=== PATIENT | female | born 1960 | race Caucasian/White ===

== ENCOUNTER 2018-05-01 17:00 | Emergency (ER) | payer OTHER, MEDICAID ==
[~2018-05-01] VITALS: Ht 170.2 cm; Wt 98.6 kg
[~2018-05-01 17:00] MED LIST: HYDR-4353 PO; LORA-660 PO; PHEN37.54 PO; TRAZ-218 PO
[2018-05-01 17:08] VITALS: BP 131/64
[2018-05-01] MEDS ORDERED: CEPH250T PO (19:27)
== END 2018-05-01 19:34 | disposition home or self-care (01) ==
LOC: ER 17:00
DX: S61.212A Laceration without foreign body of right middle finger without damage to nail, initial encounter (principal); S61.216A Laceration without foreign body of right little finger without damage to nail, initial encounter; J44.9 Chronic obstructive pulmonary disease, unspecified; G89.29 Other chronic pain; Z90.49 Acquired absence of other specified parts of digestive tract; Z90.710 Acquired absence of both cervix and uterus; Z98.890 Other specified postprocedural states; Z88.8 Allergy status to other drugs, medicaments and biological substances; Z79.2 Long term (current) use of antibiotics; Z79.899 Other long term (current) drug therapy; W26.0XXA Contact with knife, initial encounter; Y93.G9 Activity, other involving cooking and grilling; Y92.89 Other specified places as the place of occurrence of the external cause; Y99.8 Other external cause status
CPT/HCPCS: 12004; 99284

== ENCOUNTER 2018-05-05 16:08 | Emergency (ER) | payer OTHER, MEDICAID ==
[~2018-05-05] VITALS: Ht 170.2 cm; Wt 69.2 kg
[~2018-05-05 16:08] MED LIST changes: +CEPH250T PO
[2018-05-05 17:21] VITALS: BP 145/81
== END 2018-05-05 19:28 | disposition home or self-care (01) ==
LOC: ER 16:11
DX: S61.215D Laceration without foreign body of left ring finger without damage to nail, subsequent encounter (principal); J44.9 Chronic obstructive pulmonary disease, unspecified; G89.29 Other chronic pain; Z90.49 Acquired absence of other specified parts of digestive tract; Z90.710 Acquired absence of both cervix and uterus; Z98.890 Other specified postprocedural states; Z88.6 Allergy status to analgesic agent; Z88.8 Allergy status to other drugs, medicaments and biological substances; Z79.2 Long term (current) use of antibiotics; Z79.899 Other long term (current) drug therapy; Z91.018 Allergy to other foods; W26.0XXD Contact with knife, subsequent encounter
CPT/HCPCS: 99281

== ENCOUNTER 2020-05-24 18:46 | Emergency (ER) | payer OTHER, MEDICAID ==
[~2020-05-24] VITALS: Ht 165.1 cm; Wt 63.6 kg
[~2020-05-24 18:46] MED LIST changes: +ALB0.5UD IH; +ALBU8.5H8 IH; +APIX5TAB3 PO; -CEPH250T PO; +FURO40TA4 PO; -HYDR-4353 PO; +LISI2.5T2 PO; -LORA-660 PO; -PHEN37.54 PO; -TRAZ-218 PO; +TRAZ-251 PO; +metoprolol tartrate tablet PO
[2020-05-24 19:30] LABS: BASOPHILS # (AUTO) 0.1 X10'3 (0-0.2); BASOPHILS % (AUTO) 1.4 % (0-1); EOSINOPHILS # (AUTO) 0.1 X10'3 (0-0.9); EOSINOPHILS % (AUTO) 1.7 % (0-6); HEMATOCRIT 47.3 % (35.0-45.0); HEMOGLOBIN 15.7 g/dl (12.0-16.0); LYMPHOCYTES # (AUTO) 1.5 X10'3 (1.1-4.8); LYMPHOCYTES % (AUTO) 20.5 % (21-51); MEAN CORPUSCULAR HEMOGLOBIN 30.5 PG (27.0-31.0); MEAN CORPUSCULAR HGB CONC 33.2 g/dL (33.0-36.5); MEAN CORPUSCULAR VOLUME 91.9 FL (78-98); MEAN PLATELET VOLUME 7.8 FL (7.4-10.4); MONOCYTES # (AUTO) 0.5 X10'3 (0-0.9); MONOCYTES % (AUTO) 6.1 % (2-12); NEUTROPHILS # (AUTO) 5.3 X10'3 (1.8-7.7); NEUTROPHILS % (AUTO) 70.3 % (42-75); PLATELET COUNT 356 X10'3 (140-440); RED BLOOD COUNT 5.15 X10'6 (4.20-5.60); WHITE BLOOD COUNT 7.5 X10'3 (4.5-11.0)
[2020-05-24 19:51] LABS: ALANINE AMINOTRANSFERASE 28 U/L (12-78); ALBUMIN 3.8 G/DL (3.4-5.0); ALKALINE PHOSPHATASE 65 IU/L (46-116); ANION GAP 8 (8-16); ASPARTATE AMINO TRANSFERASE 22 U/L (10-37); BILIRUBIN,TOTAL 0.5 MG/DL (0.1-1.0); BLOOD UREA NITROGEN 40 MG/DL (7-18); BUN/CREATININE RATIO 37.7 (6.6-38.0); CALCIUM 9.2 MG/DL (8.5-10.1); CHLORIDE 102 MMOL/L (99-107); CREATININE 1.06 MG/DL (0.40-0.90); GLUCOSE 99 MG/DL (70-104); POTASSIUM 3.7 MMOL/L (3.5-5.1); SODIUM 140 MMOL/L (135-145); TOTAL CARBON DIOXIDE 30.2 MMOL/L (24-32); TOTAL PROTEIN 7.5 G/DL (6.4-8.2); eGFR 53 ML/MIN
[2020-05-24] MEDS ORDERED: acetaminophen 325mg tablet PO ONE (20:10)
[2020-05-24 21:28] VITALS: BP 109/73
== END 2020-05-24 21:29 | disposition home or self-care (01) ==
LOC: ER 18:47
DX: R00.2 Palpitations (principal); J44.9 Chronic obstructive pulmonary disease, unspecified; G89.29 Other chronic pain; F41.9 Anxiety disorder, unspecified; R06.89 Other abnormalities of breathing; Z90.49 Acquired absence of other specified parts of digestive tract; Z90.710 Acquired absence of both cervix and uterus; Z98.890 Other specified postprocedural states; Z90.89 Acquired absence of other organs; Z88.8 Allergy status to other drugs, medicaments and biological substances; Z88.6 Allergy status to analgesic agent; Z91.018 Allergy to other foods; Z79.01 Long term (current) use of anticoagulants; Z79.899 Other long term (current) drug therapy
CPT/HCPCS: 36415; 71045; 80053; 83880; 84484; 85025; 93005; 99285

== ENCOUNTER 2020-06-07 12:22 | Observation (INO) | payer OTHER, MEDICAID ==
[~2020-06-07] VITALS: Ht 165.1 cm; Wt 78.2 kg
[2020-06-07 13:01] LABS: BASOPHILS # (AUTO) 0.1 X10'3 (0-0.2); BASOPHILS % (AUTO) 0.9 % (0-1); EOSINOPHILS # (AUTO) 0.3 X10'3 (0-0.9); EOSINOPHILS % (AUTO) 2.6 % (0-6); HEMATOCRIT 46.6 % (35.0-45.0); HEMOGLOBIN 15.2 g/dl (12.0-16.0); LYMPHOCYTES # (AUTO) 2.1 X10'3 (1.1-4.8); LYMPHOCYTES % (AUTO) 21.5 % (21-51); MEAN CORPUSCULAR HEMOGLOBIN 29.4 PG (27.0-31.0); MEAN CORPUSCULAR HGB CONC 32.6 g/dL (33.0-36.5); MEAN CORPUSCULAR VOLUME 90.1 FL (78-98); MEAN PLATELET VOLUME 8.1 FL (7.4-10.4); MONOCYTES # (AUTO) 0.7 X10'3 (0-0.9); MONOCYTES % (AUTO) 6.6 % (2-12); NEUTROPHILS # (AUTO) 6.7 X10'3 (1.8-7.7); NEUTROPHILS % (AUTO) 68.4 % (42-75); PLATELET COUNT 276 X10'3 (140-440); RED BLOOD COUNT 5.17 X10'6 (4.20-5.60); RED CELL DISTRIBUTION WIDTH 13.7 % (11.5-14.5); WHITE BLOOD COUNT 9.8 X10'3 (4.5-11.0)
[2020-06-07 13:12] LABS: ALANINE AMINOTRANSFERASE 24 U/L (12-78); ALBUMIN 3.7 G/DL (3.4-5.0); ALBUMIN/GLOBULIN RATIO 1.1 (1.1-1.5); ALKALINE PHOSPHATASE 79 IU/L (46-116); ANION GAP 8 (8-16); ASPARTATE AMINO TRANSFERASE 18 U/L (10-37); BILIRUBIN,TOTAL 0.2 MG/DL (0.1-1.0); BLOOD UREA NITROGEN 30 MG/DL (7-18); BUN/CREATININE RATIO 29.1 (6.6-38.0); CALCIUM 9.3 MG/DL (8.5-10.1); CHLORIDE 102 MMOL/L (99-107); CREATININE 1.03 MG/DL (0.40-0.90); GLUCOSE 96 MG/DL (70-104); POTASSIUM 3.9 MMOL/L (3.5-5.1); SODIUM 140 MMOL/L (135-145); TOTAL CARBON DIOXIDE 29.7 MMOL/L (24-32); TOTAL PROTEIN 7.2 G/DL (6.4-8.2); eGFR 55 ML/MIN
[2020-06-07] MEDS ORDERED: heparin 10,000 units/1 ML INJ IV PRN (15:30)
[2020-06-07] MEDS ORDERED: heparin 25,000 UNIT/250ml bag 250 ML IV SCH (15:30)
[2020-06-07] MEDS ORDERED: nitroGLYCERIN 0.4mg/hour patch TD ONE (15:30)
[2020-06-07] MEDS ORDERED: heparin 10,000 units/1 ML INJ IV ONE (15:30)
[2020-06-07 16:03] LABS: PARTIAL THROMBOPLASTIN TIME 29 SECONDS (22-32)
[2020-06-07] MEDS ORDERED: morphine 4 MG/ML inj SYRINge IV ONE (16:10)
[2020-06-07] MEDS ORDERED: ondansetron/PF 4mg/2ml inj IV PRN (16:20)
[2020-06-07] MEDS ORDERED: magnesium hydroxide 30ml (MOM) UD suspension PO PRN (16:20)
[2020-06-07] MEDS ORDERED: morphine 2 MG/ML inj. syringe IV PRN ×2 (16:20)
[2020-06-07] MEDS ORDERED: metoprolol tartrate 1mg/ml inj IV PRN (16:20)
[2020-06-07] MEDS ORDERED: nitroGLYCERIN 0.4mg SUBLingual tab SL PRN ×2 (16:20)
[2020-06-07] MEDS ORDERED: HYDROcodone/acetaminophen 5mg/325mg tablet PO PRN (16:20)
[2020-06-07] MEDS ORDERED: aminophylline 250mg/10ml inj. IV PRN (16:20)
[2020-06-07] MEDS ORDERED: mag hydrox/Alum hydrox/simeth 30ml oral suspension PO PRN (16:20)
[2020-06-07] MEDS ORDERED: acetaminophen 325mg tablet PO PRN ×2 (16:20)
[2020-06-07] MEDS ORDERED: regadenoson 0.4mg/5ml syringe IV ONE (16:20)
[2020-06-07] MEDS ORDERED: LISI2.5T2 PO (16:53)
[2020-06-07] MEDS ORDERED: FURO40TA4 PO (16:53)
[2020-06-07] MEDS ORDERED: APIX5TAB3 PO (16:53)
[2020-06-07] MEDS ORDERED: METO25TA6 PO (16:55)
[2020-06-07] MEDS ORDERED: FLUT1AER7 INH (16:59)
[2020-06-07] MEDS ORDERED: ADV50100 INH (17:03)
[2020-06-07] MEDS ORDERED: GABA300C PO (17:03)
[2020-06-07] MEDS ORDERED: POTA8CAP20 PO (17:04)
[2020-06-07] MEDS ORDERED: CYCL-394 PO (17:06)
[2020-06-07] MEDS ORDERED: HYDR-3686 PO (17:07)
[2020-06-07 17:20] VITALS: BP 110/65
--- NOTE | 2020-06-07 17:20 | NUR ---
PATIENT ARRIVED FROM ER AT THIS TIME. PT ABLE TO WALK TO BED AT THIS TIME. PATIENT HAS IV 20 G TO RIGHT FA RUNNING HEPARIN AT 800. NEXT PTT AT 2200. PT LUNGS CLEAR BILATERAL ANTERIOR AND POSTERIOR. PT HEART RATE WNL. PT BOWEL SOUNDS PRESENT NORMAL. PT SKIN COLOR WNL. SKIN TURGOR NORMAL. NO EDEMA PRESENT. PT HAVING HEARTY HEALTH DIET. NPO AT SC FOR STRESS TEST IN AM. MD SAW PATIENT AT BED SIDE ANSWERED AL QUESTIONS. PT ALERT X4 NO DISTRESS NOTED. PT REALLY HAPPY AND COMPLIANT. GREAT ATTITUDE. WILL FOLLOW UP CALL MART[facility]NEZ WITHIN REACH SAFETY PREC IN PLACE.
[2020-06-07] MEDS ORDERED: albuterol 2.5 MG/3 ML nebule NEB PRN (17:55)
[2020-06-07] MEDS ORDERED: cyclobenzaprine 10mg tablet PO PRN (17:55)
[2020-06-07] MEDS ORDERED: hydrOXYzine 25 MG tablet PO PRN (17:55)
[2020-06-07 18:00] VITALS: BP 113/62
--- NOTE | 2020-06-07 18:18 | NUR ---
report given to carmen gomez. pt eating at this time. pt able to move all extrmieites. pt skin color wnl. pt dneis chest pain pt denies sob. pt running heparin to right extremity. will transfer care.
[2020-06-07] MEDS: budesonide 0.5mg/2ml UD nebule IH SCH (20:42)
[2020-06-07] MEDS ORDERED: traZODone 50mg tablet PO SCH (21:00)
[2020-06-07] MEDS: metoprolol tartrate 25mg tablet PO SCH (21:28)
[2020-06-07] MEDS: apixaban 5mg tablet PO SCH (21:29)
[2020-06-07 22:00] VITALS: BP 102/64
[2020-06-08] VITALS (9 sets, daily range): BP systolic 96–115; BP diastolic 53–67
[2020-06-08] MEDS: HYDROcodone/acetaminophen 10/325mg tab PO PRN ×3 (02:35→14:19)
[2020-06-08] MEDS: gabapentin 300mg capsule PO SCH ×2 (02:35→10:23)
--- NOTE | 2020-06-08 06:28 | NUR ---
Problems reprioritized. Patient report given, questions answered & plan of care reviewed with NATO Jalloh
--- NOTE | 2020-06-08 06:44 | NUR ---
report received by carmen gomez. pt alert an orientated x3. patient dnies nay acute distress. pt on iv to right ac running heparin at this time. pt dnie chest pain or sob. pt able to move all extremities. pt npo for akiko this am. call truong marroquin reach [facility] prec in place.
[2020-06-08 07:02] LABS: BASOPHILS # (AUTO) 0.1 X10'3 (0-0.2); BASOPHILS % (AUTO) 1.4 % (0-1); EOSINOPHILS # (AUTO) 0.3 X10'3 (0-0.9); EOSINOPHILS % (AUTO) 4.7 % (0-6); HEMATOCRIT 41.9 % (35.0-45.0); HEMOGLOBIN 13.9 g/dl (12.0-16.0); LYMPHOCYTES # (AUTO) 2.2 X10'3 (1.1-4.8); LYMPHOCYTES % (AUTO) 40.6 % (21-51); MEAN CORPUSCULAR HEMOGLOBIN 29.9 PG (27.0-31.0); MEAN CORPUSCULAR HGB CONC 33.2 g/dL (33.0-36.5); MEAN CORPUSCULAR VOLUME 89.9 FL (78-98); MEAN PLATELET VOLUME 8.4 FL (7.4-10.4); MONOCYTES # (AUTO) 0.4 X10'3 (0-0.9); MONOCYTES % (AUTO) 7.3 % (2-12); NEUTROPHILS # (AUTO) 2.5 X10'3 (1.8-7.7); PLATELET COUNT 226 X10'3 (140-440); RED BLOOD COUNT 4.66 X10'6 (4.20-5.60); RED CELL DISTRIBUTION WIDTH 13.8 % (11.5-14.5); WHITE BLOOD COUNT 5.5 X10'3 (4.5-11.0)
[2020-06-08 07:18] LABS: ALBUMIN 3.2 G/DL (3.4-5.0); ANION GAP 9 (8-16); BLOOD UREA NITROGEN 27 MG/DL (7-18); BUN/CREATININE RATIO 32.5 (6.6-38.0); CALCIUM 8.6 MG/DL (8.5-10.1); CHLORIDE 103 MMOL/L (99-107); CHOL/HDL RATIO 2.6 (0.00-4.99); CHOLESTEROL 149 MG/DL (0-200); CREATININE 0.83 MG/DL (0.40-0.90); GLUCOSE 94 MG/DL (70-104); HDL CHOLESTEROL 57 MG/DL (35-60); LDL CHOLESTEROL 87 MG/DL (50-100); SODIUM 139 MMOL/L (135-145); TRIGLYCERIDES 71 MG/DL (20-135); TROPONIN I 0.04 NG/ML (0.0-0.05); eGFR 71 ML/MIN
[2020-06-08] MEDS: budesonide 0.5mg/2ml UD nebule IH SCH (07:59)
[2020-06-08] MEDS ORDERED: lisinopril 2.5mg tablet PO SCH (08:00)
[2020-06-08] MEDS ORDERED: furosemide 40mg tablet PO SCH (08:00)
[2020-06-08] MEDS ORDERED: potassium chloride 8mEq ER tablet PO SCH (08:00)
--- NOTE | 2020-06-08 10:10 | NUR ---
patient arrived from [facility]. prt dnies any acute distress. pt denies any pain. patient heparin drip dc in nuclear medicine. pt dnies any pain or sob. will continue to monitor
[2020-06-08] MEDS: apixaban 5mg tablet PO SCH (10:23)
[2020-06-08] MEDS: metoprolol tartrate 25mg tablet PO SCH (10:24)
--- NOTE | 2020-06-08 13:16 | NUR ---
PAGER ID: [phone] MESSAGE: HEATHER ALLISON THIS IS BONNY FROM [facility]. PATIENT 19 [address] MELISSA THE RESULTS OF JAYJAY ARE IN THIS IS THE IMPRESION No evidence of ischemia or infarct. Moderate global hypokinesia with left ventricular ejection fraction of 36%. CAN WE FEED HER ALSO
--- NOTE | 2020-06-08 16:34 | NUR ---
PATIENT BEING DC AT THIS TIME. PT DNIES ANY ACUTE DISTRESS PATIENT UNDERSTANDS DC INSTRUCTIONS NO QUESTIONS PT D REFUSED A RIDE STATES SHE CAN DRIVE HOME NO ISSUES. EXPLAI THE IMPORTANCE OF HAVING A RIDE PT STILL REFUSED STATES SHES FINE TO DRIVE . DC IV NO COMPLICATIONS NOTED
== END 2020-06-08 17:34 | disposition home or self-care (01) ==
LOC: ER 12:23 → ED HOLD 16:16 → PCU 3S 17:36
PROVIDERS: ADMIT Internal Medicine; ATTEND Internal Medicine
DX: R07.89 Other chest pain (principal); I50.22 Chronic systolic (congestive) heart failure; I48.0 Paroxysmal atrial fibrillation; J44.9 Chronic obstructive pulmonary disease, unspecified; F41.0 Panic disorder [episodic paroxysmal anxiety]; F17.210 Nicotine dependence, cigarettes, uncomplicated; Z90.49 Acquired absence of other specified parts of digestive tract; Z90.710 Acquired absence of both cervix and uterus; Z79.01 Long term (current) use of anticoagulants; Z79.899 Other long term (current) drug therapy; Z88.6 Allergy status to analgesic agent; Z88.8 Allergy status to other drugs, medicaments and biological substances
CPT/HCPCS: 36415; 71045; 78452; 80048; 80053; 80061; 83880; 84484; 85025; 85610; 85730; 87081; 93005; 93017; 94640; 94760; 96374; 96375; 99285; A9500; G0378; J1644; J2270; J2785; 96376; J7626

== ENCOUNTER 2020-08-28 07:13 | Day surgery (SDC) | payer OTHER, MEDICAID ==
[2020-08-27 17:03] LABS: BASOPHILS # (AUTO) 0.1 X10'3 (0-0.2); BASOPHILS % (AUTO) 0.8 % (0-1); EOSINOPHILS # (AUTO) 0.2 X10'3 (0-0.9); EOSINOPHILS % (AUTO) 2.4 % (0-6); HEMATOCRIT 36.3 % (35.0-45.0); LYMPHOCYTES # (AUTO) 2.1 X10'3 (1.1-4.8); LYMPHOCYTES % (AUTO) 22.1 % (21-51); MEAN CORPUSCULAR HEMOGLOBIN 29.7 PG (27.0-31.0); MEAN CORPUSCULAR VOLUME 89.9 FL (78-98); MEAN PLATELET VOLUME 7.3 FL (7.4-10.4); MONOCYTES # (AUTO) 0.7 X10'3 (0-0.9); MONOCYTES % (AUTO) 6.8 % (2-12); NEUTROPHILS # (AUTO) 6.5 X10'3 (1.8-7.7); NEUTROPHILS % (AUTO) 67.9 % (42-75); PLATELET COUNT 285 X10'3 (140-440); RED BLOOD COUNT 4.04 X10'6 (4.20-5.60); RED CELL DISTRIBUTION WIDTH 14.9 % (11.5-14.5); WHITE BLOOD COUNT 9.6 X10'3 (4.5-11.0)
[2020-08-27 17:11] LABS: ALBUMIN 3.5 G/DL (3.4-5.0); ANION GAP 11 (8-16); BLOOD UREA NITROGEN 24 MG/DL (7-18); BUN/CREATININE RATIO 23.1 (6.6-38.0); CALCIUM 8.9 MG/DL (8.5-10.1); CHLORIDE 103 MMOL/L (99-107); CREATININE 1.04 MG/DL (0.40-0.90); GLUCOSE 135 MG/DL (70-104); POTASSIUM 3.7 MMOL/L (3.5-5.1); SODIUM 142 MMOL/L (135-145); TOTAL CARBON DIOXIDE 28.1 MMOL/L (24-32); eGFR 54 ML/MIN
[2020-08-27 17:14] LABS: PARTIAL THROMBOPLASTIN TIME 27 SECONDS (22-32)
[2020-08-28] VITALS (14 sets, daily range): BP systolic 96–142; BP diastolic 45–97
[~2020-08-28] VITALS: Ht 170.2 cm; Wt 74.2 kg
[~2020-08-28 07:13] MED LIST changes: +ADV50100 INH; -ALB0.5UD IH; +CYCL-394 PO; +GABA300C PO; +HYDR-3686 PO; +LOP25T PO; +POTA8CAP20 PO; -metoprolol tartrate tablet PO
[2020-08-28] MEDS ORDERED: LIDOcaine/PRILOcaine 5gm cream TP ONE (07:45)
[2020-08-28] MEDS ORDERED: LORazepam 0.5 MG tablet PO PRN (07:45)
[2020-08-28] MEDS ORDERED: normal saline 1,000 ML IV SCH (07:45)
[2020-08-28] MEDS ORDERED: diphenhydrAMINE 25mg capsule PO PRN (07:45)
[2020-08-28] MEDS ORDERED: DICL150D3 TOP (07:55)
[2020-08-28] MEDS ORDERED: HYDR25TA5 PO (07:55)
[2020-08-28] MEDS ORDERED: ADV50100 IH (07:56)
[2020-08-28] MEDS ORDERED: midazolam 1 mg/ML 2ml injection ONE (08:01)
[2020-08-28] MEDS ORDERED: nitroGLYCERIN-Tridil 50MG/D5W 250 ML IV ONE (08:01)
[2020-08-28] MEDS ORDERED: fentaNYL/PF 50MCG/1 ML 2ML syringe ONE (08:01)
[2020-08-28] MEDS ORDERED: iohexol 350MG/ML 100ml bottle IV ONE (08:02)
[2020-08-28] MEDS ORDERED: iohexol 350 MG/ML 50ML vial IV ONE (08:02)
[2020-08-28] MEDS ORDERED: verapamil 2.5 mg/ml inj IV ONE (08:02)
[2020-08-28] MEDS ORDERED: LIDOcaine 1% (10mg/ml)w/preservative injection 20ml MDV ONE (08:02)
[2020-08-28] MEDS ORDERED: heparin 1,000unit/ml 10ml vial 10 ML ONE (08:02)
[2020-08-28] MEDS ORDERED: normal saline 1,000 ML IV ONE (09:52)
[2020-08-28] MEDS ORDERED: HYDROcodone/acetaminophen 5mg/325mg tablet PO PRN (11:30)
[2020-08-28] MEDS ORDERED: HYDROcodone/acetaminophen 10/325mg tab PO PRN (11:30)
== END 2020-08-28 15:55 | disposition home or self-care (01) ==
LOC: SSTAY O 07:13
PROVIDERS: ATTEND Internal Medicine Cardiovascular Disease
DX: R06.02 Shortness of breath (principal); R53.83 Other fatigue; I25.10 Atherosclerotic heart disease of native coronary artery without angina pectoris; J44.9 Chronic obstructive pulmonary disease, unspecified; I42.9 Cardiomyopathy, unspecified; I48.0 Paroxysmal atrial fibrillation; I08.1 Rheumatic disorders of both mitral and tricuspid valves; Z87.891 Personal history of nicotine dependence; Z88.8 Allergy status to other drugs, medicaments and biological substances; Z79.899 Other long term (current) drug therapy; Z79.01 Long term (current) use of anticoagulants
CPT/HCPCS: 36415; 76937; 80048; 85025; 85610; 85730; 93005; 93460; 99152; 99153; C1760; C1769; C1894; J1644; J2001; J2250; J3010; J7030; Q0163; Q9967; A5120; A6258; C1751; J3490

== ENCOUNTER 2021-02-28 12:18 | Emergency (ER) | payer OTHER, MEDICAID ==
[~2021-02-28] VITALS: Ht 170.2 cm; Wt 74.5 kg
[~2021-02-28 12:18] MED LIST changes: +ADV50100 IH; +ALBU8.5H17 IH; -ALBU8.5H8 IH; +DICL150D9 TOP; +HYDR25TA5 PO; +LISI2.5T14 PO; -LISI2.5T2 PO
[2021-02-28 13:46] LABS: BASOPHILS # (AUTO) 0.1 X10'3 (0-0.2); BASOPHILS % (AUTO) 0.7 % (0-1); EOSINOPHILS # (AUTO) 0.2 X10'3 (0-0.9); HEMOGLOBIN 13.1 g/dl (12.0-16.0); LYMPHOCYTES # (AUTO) 1.9 X10'3 (1.1-4.8); LYMPHOCYTES % (AUTO) 18.4 % (21-51); MEAN CORPUSCULAR HEMOGLOBIN 31.1 PG (27.0-31.0); MEAN CORPUSCULAR HGB CONC 33.6 g/dL (33.0-36.5); MEAN CORPUSCULAR VOLUME 92.4 FL (78-98); MEAN PLATELET VOLUME 7.9 FL (7.4-10.4); MONOCYTES # (AUTO) 0.9 X10'3 (0-0.9); MONOCYTES % (AUTO) 8.2 % (2-12); NEUTROPHILS # (AUTO) 7.4 X10'3 (1.8-7.7); NEUTROPHILS % (AUTO) 70.7 % (42-75); PLATELET COUNT 327 X10'3 (140-440); RED BLOOD COUNT 4.22 X10'6 (4.20-5.60); RED CELL DISTRIBUTION WIDTH 14.1 % (11.5-14.5); WHITE BLOOD COUNT 10.4 X10'3 (4.5-11.0)
[2021-02-28 14:02] LABS: ALANINE AMINOTRANSFERASE 28 U/L (12-78); ALBUMIN 3.8 G/DL (3.4-5.0); ALBUMIN/GLOBULIN RATIO 1.1 (1.1-1.5); ALKALINE PHOSPHATASE 64 IU/L (46-116); ANION GAP 9 (8-16); ASPARTATE AMINO TRANSFERASE 14 U/L (10-37); BILIRUBIN,TOTAL 0.3 MG/DL (0.1-1.0); BLOOD UREA NITROGEN 21 MG/DL (7-18); BUN/CREATININE RATIO 24.4 (6.6-38.0); CALCIUM 9.1 MG/DL (8.5-10.1); CHLORIDE 105 MMOL/L (99-107); CREATININE 0.86 MG/DL (0.40-0.90); GLUCOSE 92 MG/DL (70-104); POTASSIUM 4.2 MMOL/L (3.5-5.1); SODIUM 144 MMOL/L (135-145); TOTAL CARBON DIOXIDE 30.4 MMOL/L (24-32); TOTAL PROTEIN 7.4 G/DL (6.4-8.2); eGFR 68 ML/MIN
[2021-02-28 14:11] LABS: MAGNESIUM 2.2 MG/DL (1.5-2.4)
[2021-02-28] MEDS ORDERED: ketorolac tromethamine 15mg/ml inj. IV ONE (16:50)
[2021-02-28 17:51] VITALS: BP 116/63
== END 2021-02-28 17:48 | disposition home or self-care (01) ==
LOC: ER 12:19
DX: R09.1 Pleurisy (principal); R07.89 Other chest pain; R05.9 Cough, unspecified; I48.91 Unspecified atrial fibrillation; I50.9 Heart failure, unspecified; J44.9 Chronic obstructive pulmonary disease, unspecified; G89.29 Other chronic pain; F41.9 Anxiety disorder, unspecified; Z90.89 Acquired absence of other organs; Z90.710 Acquired absence of both cervix and uterus; Z98.890 Other specified postprocedural states; Z88.8 Allergy status to other drugs, medicaments and biological substances; Z79.899 Other long term (current) drug therapy
CPT/HCPCS: 36415; 71045; 80053; 83735; 83880; 84484; 85025; 93005; 96374; 99285; J1885

== ENCOUNTER 2024-10-13 14:17 | Emergency (ER) | payer OTHER, MEDICAID ==
[~2024-10-13] VITALS: Ht 170.2 cm; Wt 88.0 kg
[~2024-10-13 14:17] MED LIST changes: +DICL150D11 TOP; -DICL150D9 TOP
--- NOTE | 2024-10-13 14:22 | ELECTROCARDIOGRAPH REPORT ---
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 Don Stacy Measurements Intervals [place] Rate: 82 P: 59 [place]: 186 QRS: 67 QRSD: 100 T: 64 QT: 393 QTc: 459 Interpretive Statements Sinus rhythm Probable left atrial enlargement Left ventricular hypertrophy Electronically Signed On 10-13-2024 15:16:[address] Don Stacy Please click the below link to view image of tracing.
[2024-10-13 14:39] LABS: BASOPHILS # (AUTO) 0.1 X10'3 (0-0.2); BASOPHILS % (AUTO) 0.8 % (0-1); EOSINOPHILS # (AUTO) 0.4 X10'3 (0-0.9); EOSINOPHILS % (AUTO) 3.5 % (0-6); HEMATOCRIT 40.3 % (35.0-45.0); HEMOGLOBIN 13.7 g/dl (12.0-16.0); LYMPHOCYTES # (AUTO) 2.3 X10'3 (1.1-4.8); LYMPHOCYTES % (AUTO) 22.5 % (21-51); MEAN CORPUSCULAR HEMOGLOBIN 30.1 PG (27.0-31.0); MEAN CORPUSCULAR HGB CONC 33.8 g/dL (33.0-36.5); MEAN PLATELET VOLUME 7.9 FL (7.4-10.4); MONOCYTES # (AUTO) 0.6 X10'3 (0-0.9); MONOCYTES % (AUTO) 6.4 % (2-12); NEUTROPHILS # (AUTO) 6.8 X10'3 (1.8-7.7); NEUTROPHILS % (AUTO) 66.8 % (42-75); PLATELET COUNT 361 X10'3 (140-440); RED BLOOD COUNT 4.53 X10'6 (4.20-5.60); RED CELL DISTRIBUTION WIDTH 13.9 % (11.5-14.5); WHITE BLOOD COUNT 10.1 X10'3 (4.5-11.0)
--- NOTE | 2024-10-13 14:47 | RADIOLOGY REPORT ---
EXAM: DI CHEST,SINGLE VIEW Indication: CP Technique: Single frontal view of the chest was obtained Comparison: CHEST,SINGLE VIEW on DOS: 02/28/21, CHEST,SINGLE VIEW on DOS: 06/07/20, CHEST,SINGLE VIEW on DOS: 05/24/20, CHEST,SINGLE VIEW on DOS: 05/16/20 FINDINGS: Lines and Tubes: None Lungs: No focal consolidation. Pleura: No effusion. No pneumothorax. Cardiomediastinal contours: Unremarkable Bones: No acute osseous abnormality. IMPRESSION: No acute cardiopulmonary disease.
[2024-10-13 14:57] LABS: ALBUMIN 4.4 G/DL (3.4-5.0); ANION GAP 14 (8-16); BLOOD UREA NITROGEN 24 MG/DL (7-18); BUN/CREATININE RATIO 24.5 (10.0-20.0); CALCIUM 9.4 MG/DL (8.5-10.1); CHLORIDE 102 MMOL/L (99-107); CREATININE 0.98 MG/DL (0.40-0.90); GLUCOSE 92 MG/DL (70-104); POTASSIUM 3.6 MMOL/L (3.5-5.1); SODIUM 142 MMOL/L (135-145); TOTAL CARBON DIOXIDE 26.1 MMOL/L (24-32); eCRCL 58 ML/MIN; eGFR 58 ML/MIN
[2024-10-13 15:31] LABS: PRO BRAIN NATRIURETIC PEPTIDE 252 PG/ML (0-125)
[2024-10-13 16:30] VITALS: PULSE 75
--- NOTE | 2024-10-13 18:20 | Physician Documentation ---
History of Present Illness ~ Chief Complaint: Chest Pain Stated Complaint: CHF HEART PAIN Time Seen by MD: 18:12 Primary Medical Doctor: heri vernon HPI Patient presents to the emergency room for evaluation of chest pain. Patient has had a stress test approximately four years ago. She does have a database support, Dr. barajas, who she has seen within the last year. Patient states her chest pain began while she was sleeping this evening. She has not been sleeping well he has been tossing and turning trying to deal with her home O2. Pain is sharp in nature in left-sided. Exacerbated with deep inspirations. She does note that she has been trying to exercise recently has been able to ride a bike a few miles without limitations. She denies one-sided leg pain. Medication Reconciliation Allergies: Coded Allergies: baclofen (Verified Allergy, Mild, ITCHING/HIVES, 03/02/09) aspirin (Verified Allergy, Unknown, 03/02/09) soy isoflavone (Verified Allergy, Unknown, THROAT CONSTRICTION, 12/21/15) Scheduled Apixaban (Eliquis), 1 TAB PO Q12H, (Reported) Diclofenac Sodium (Diclofenac Sodium), 15 APPLIC TOP Q6H, (Reported) Fluticasone/Salmeterol (Advair 100-50 Diskus), 1 PUFF INH Q12H, (Reported) Fluticasone/Salmeterol* (Advair 100-50 Diskus*), 1 INH IH BID, (Reported) Furosemide 40 MG (Lasix), 1 TAB PO DAILY, (Reported) Gabapentin (Neurontin), 1 CAP PO Q8H, (Reported) Hydrochlorothiazide (Hydrochlorothiazide), 1 TAB PO BID, (Reported) Lisinopril (Lisinopril), 1 TAB PO DAILY, (Reported) Metoprolol Tartrate* (Lopressor tablet*), 1 TAB PO Q12H, (Reported) Potassium Chloride 8 MEQ* (Slow-K 8 Meq*), 1 CAP PO DAILY, (Reported) Trazodone HCl (Trazodone HCl), 1 TAB PO HS, (Reported) Scheduled PRN Albuterol Sulfate (Proair Hfa), 2 PUFFS IH TID PRN for SOB or wheezing, (Reported) Cyclobenzaprine HCl (Cyclobenzaprine HCl), 1 TAB PO BID PRN for muscle spasms, (Reported) Hydroxyzine Hcl* (Atarax*), 1 TAB PO BID PRN for itching, (Reported) Past Medical History Past Medical History: Atrial Fibrillation, Congestive Heart Failure, Asthma, COPD, Chronic Back Pain, Anxiety, Panic Disorder Past Surgical History: appendectomy, , hysterectomy, orthopedic surgeries, tonsillectomy Other Past Surgical History: HERNIA REPAIR Alcohol Use: None Drug Use: none Review of Systems ROS All review of systems negative except as per HPI Physical Exam Vital Signs: Temperature: 98.1, Source: Oral, Heart Rate: 75, Respiratory Rate: 16, BP: 129/55, Pulse Oximetry: 100, Weight: 88.000 Oxygen Flow Rate: 0 Physical Exam General: Patient is awake, alert, oriented x4 in no acute distress and well appearing.~ Head: Normocephalic and atraumatic. Eyes: Conjunctival normal. EOMI. PERRL. ENT: Mucous membranes moist. Neck: Supple, trachea is midline. Chest: Clear to auscultation bilaterally without rales, rhonchi, or wheezes. There is no accessory muscle use or retractions. Cardiac: RRR without murmurs, gallops, or rubs. Abd: Soft, nondistended, nontender, with normoactive bowel sounds. No guarding, rebound, or rigidity. Extremities: Normal strength. Normal range of motion. No deformities or edema. No calf tenderness to palpation Progress Results/Orders Results/Orders Vital Signs 10/13/24 10/13/24 14:24 16:30 Temp 97.8 98.1 Pulse 78 75 Resp 16 16 B/P (MAP) 160/75 129/55 (79) Pulse Ox 100 100 O2 Flow Rate 0 0 Laboratory Tests Test 10/13/24 14:30 10/13/24 16:28 10/13/24 17:21 White Blood Count 10.1 Red Blood Count 4.53 Hemoglobin 13.7 Hematocrit 40.3 Mean Corpuscular Volume 89.0 Mean Corpuscular Hemoglobin 30.1 Mean Corpuscular Hemoglobin Concent 33.8 Red Cell Distribution Width 13.9 Platelet Count 361 Mean Platelet Volume 7.9 Neutrophils (%) (Auto) 66.8 Lymphocytes (%) (Auto) 22.5 Monocytes (%) (Auto) 6.4 Eosinophils (%) (Auto) 3.5 Basophils (%) (Auto) 0.8 Neutrophils # (Auto) 6.8 Lymphocytes # (Auto) 2.3 Monocytes # (Auto) 0.6 Eosinophils # (Auto) 0.4 Basophils # (Auto) 0.1 CBC Comment Sodium Level 142 Potassium Level 3.6 Chloride Level 102 Carbon Dioxide Level 26.1 Anion Gap 14 Blood Urea Nitrogen 24 H Creatinine 0.98 H Estimated GFR/1.73 m2 58 BUN/Creatinine Ratio 24.5 H Glucose Level 92 Calcium Level 9.4 Troponin I High Sensitivity 50 45 45 Pro-B-Type Natriuretic Peptide 252 H Albumin 4.4 Chemistry Comments Troponin I High Sens Percent Delta 10 0 Troponin I Hi Sens Absolute Change -5 0 EKG/XRAY/CT/US/VASC/MRI EKG : Additional Comment EKG interpreted by myself shows time of 14 19, rate 82, sinus rhythm, normal axis, no ST changes Chest X-Ray : Additional Comments Exam: CHEST,SINGLE VIEW EXAM: DI CHEST,SINGLE VIEW Indication: CP Technique: Single frontal view of the chest was obtained Comparison: CHEST,SINGLE VIEW on DOS: 02/28/21, CHEST,SINGLE VIEW on DOS: 06/07/20, CHEST,SINGLE VIEW on DOS: 05/24/20, CHEST,SINGLE VIEW on DOS: 05/16/20 FINDINGS: Lines and Tubes: None Lungs: No focal consolidation. Pleura: No effusion. No pneumothorax. Cardiomediastinal contours: Unremarkable Bones: No acute osseous abnormality. IMPRESSION: No acute cardiopulmonary disease. Medical Decision Making Findings Patient with heart score of one. Patient presented to the emergency room for evaluation of chest pain. Differentials include but are not limited to ACS, pulmonary embolism, aortic pathology, pneumothorax therefore emergent labs and imaging indicated. Patient with reassuring troponins and the fact that I am able to elicit pain with palpation is very reassuring. Patient has a reassuring heart score. She has been instructed to follow up with her database support. ER precautions discussed Departure Disposition: HOME / SELF CARE / HOMELESS Impression: Primary Impression: Chest wall pain Condition: Stable Discharge Instructions: Chest Wall Pain Additional Instructions: Call your database support to arrange for follow up Referrals: NO PRIMARY CARE PROVIDER (PCP) Education Educated: Patient Educated regarding: diagnosis, treatment, need for follow up Signature Scribe Signature: No scribe Attestation: The note accurately reflects work and decisions made by me.Hermes Sawant MD 10/13/24 18:35 HERMES SAWANT MD Oct 13, 2024 18:20
[2024-10-13] MEDS: acetaminophen 325mg tablet PO ONE (18:44)
[2024-10-13] MEDS: TETanus/Pertussis (Acell)/Diphther VAC/PF (Tdap-Adult) 0.5ml syringe IMVAC ONE (18:45)
[2024-10-13 18:48] VITALS: BP 142/79; RESP 16; TEMP 98.4; O2SAT 98
== END 2024-10-13 18:50 | disposition home or self-care (01) ==
LOC: ER 14:17
DX: R07.89 Other chest pain (principal); I48.91 Unspecified atrial fibrillation; I50.9 Heart failure, unspecified; J44.9 Chronic obstructive pulmonary disease, unspecified; F41.9 Anxiety disorder, unspecified; Z88.6 Allergy status to analgesic agent; Z88.8 Allergy status to other drugs, medicaments and biological substances; Z90.49 Acquired absence of other specified parts of digestive tract; Z90.710 Acquired absence of both cervix and uterus; Z98.890 Other specified postprocedural states
CPT/HCPCS: 36415; 71045; 80048; 83880; 84484; 85025; 90471; 90715; 93005; 99285